=== PATIENT | male | born 1965 | race Caucasian/White ===

== ENCOUNTER 2025-01-25 12:11 | Emergency (ER) | payer OTHER, SELFPAY ==
--- NOTE | ~2025-01-25 | XR_ITS ---
CLINICAL HISTORY: dyspnea on exertion Two views of the chest. COMPARISON: None FINDINGS: Radiopaque debris overlying the posterior lower neck on the left. Low lung volumes. Normal heart size. Mild elevation of the left hemidiaphragm. No consolidation. No pleural effusion. No pneumothorax. Mild spondylosis. No acute fracture identified. IMPRESSION: 1. Low lung volumes. No consolidation. 2. Elevation of the left hemidiaphragm, unclear etiology. This document has been electronically signed by: Wiley Chung MD on 01/25/2025 17:25:55
[2025-01-25 12:29] VITALS: BP 132/88; PULSE 86; PULSE 96; RESP 18; TEMP 36.4; O2SAT 92; O2SAT 93; BMI 37.3
--- NOTE | 2025-01-25 14:46 | ECG_ITS ---
Test Reason : sob Blood Pressure : */* mmHG Vent. Rate : 94 BPM Atrial Rate : 94 BPM P-R Int : 160 ms QRS Dur : 92 ms QT Int : 338 ms P-R-T Axes : 44 15 52 degrees QTcB Int : 422 ms Normal sinus rhythm Normal ECG No previous ECGs available Referred By: Tyra Herrera Electronically Signed By: Ambrocio Austin
--- NOTE | 2025-01-25 15:55 | ED.GENADULT ---
HPI - General Adult General Chief complaint: General Medical Stated complaint: LEG/BACK/NECK PAIN X2 DAYS,-TRAUMA PER EMS Time Seen by Provider: 01/25/25 15:55 History of Present Illness ED Provider: Ernesto CERON narrative: The patient is a 59-year-old male who says that he has a history of type 2 diabetes and hypertension and fibromyalgia. He says that he recently moved to this area from [place] about 3 months ago. He does not have a doctor in his area and he has no medications. He believes that he has taken metformin and insulin for his diabetes in the past. He can not name any antihypertensive medications. 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 He says that at his job he has had to go up a lot of stairs. He says that he has found going up the stairs difficult. It causes pain in his knees in his ankles. He wonders if this is related to his fibromyalgia. Today he also felt pain that he says started in his head and went down the back of his neck and throughout his back and down to his legs. He says he has had episodes of pain like this in the past. He says that he used to live in [place], [place] for 10 years and he often went to the hospital there for similar symptoms. The patient says that he was in [place] for about 3 years until moving to [place] 3 months ago. He has no local doctors. He lives with his daughter. Related Data Previous Rx's ?Medication ?Instructions ?Recorded acetaminophen 500 mg capsule 1,000 mg (2 x 500 mg) PO Q8H PRN 01/25/25 fever or pain #14 caps ibuprofen 400 mg tablet 400 mg PO Q6H PRN pain #14 tabs 01/25/25 metformin 500 mg tablet 500 mg PO BID 90 days #180 tabs 01/25/25 Allergies Allergy/AdvReac Type Severity Reaction Status Date / Time No Known Allergies Allergy Verified 01/25/25 12:33 Review of Systems Review of Systems: Yes all other systems are reviewed and are negative Physical Exam ED Vital Signs: Vital Signs - 24 hr 01/25/25 12:29 01/25/25 18:13 01/25/25 19:55 Temperature 97.6 F 97.8 F 98 F Pulse Rate 86 103 H 98 Respiratory Rate 18 21 H 18 Blood Pressure 132/88 119/80 122/76 Pulse Oximetry 93 94 98 Oxygen Delivery Method Room Air Room Air Room Air BMI result Body Mass Index 37.3 Const Other: The patient is a somewhat overweight 59-year-old male who was awake and alert. He does not appear in obvious acute distress or seem obviously acutely ill. HENMT Other: Face is symmetrical, mucous membranes moist Eyes General: appearance normal, both eyes and all related structures Conjunctivae: conjunctivae normal Pupils: Equal, round and reactive pupils present EOM: EOMs intact bilaterally Neck Neck: Yes normal visual inspection, Yes full ROM, Yes no lymphadenopathy and Yes no JVD Resp Effort & Inspection: normal respiratory effort Auscultation: clear to auscultation bilaterally Cardio Jugular venous distension: no JVD Rate: regular rate Rhythm: regular rhythm Heart sounds: S1 normal heart sound present and S2 normal heart sound present GI Other: Abdomen is soft and nontender Skin Other: Skin is dry and unremarkable, no erythema Neuro Other: The patient is awake and alert with a normal mental status. Cranial nerves are grossly intact. He moves his extremities symmetrically. Cranial nerves: Yes Equal, round and reactive pupils present Extrem Other: No focal joint swelling or tenderness. No pitting edema. No asymmetry to the calves. Medications Administered Discontinued Medications Generic Name Dose Route Start Last Admin Trade Name Freq PRN Reason Stop Dose Admin Diphenhydramine HCl 25 mg 01/25/25 18:32 01/25/25 18:48 Diphenhydramine Hcl 50 Mg/Ml Vial IVPUSH 01/25/25 18:33 25 mg ONCE ONE Administration Sodium Chloride 1,000 mls @ 999 mls/hr 01/25/25 18:45 01/25/25 19:55 Ns IV 01/25/25 19:45 Infused .Q1H1M CAT Infusion Ketorolac Tromethamine 10 mg 01/25/25 18:32 01/25/25 18:48 Ketorolac Tromethamine 15 Mg/Ml Vial IVPUSH 01/25/25 18:33 10 mg ONCE ONE Administration Metoclopramide HCl 10 mg 01/25/25 18:32 01/25/25 18:48 Metoclopramide Hcl 10 Mg/2 Ml Vial IVPUSH 01/25/25 18:33 10 mg ONCE ONE Administration Medical Decision Making Medical Decision Making [facility] Narrative: The patient is a 59-year-old male who relocated to this area from [place] about 3 months ago. He has a history of type 2 diabetes and hypertension but has not been on any medications recently. The only medication that he can tell me he has been on is metformin. He also says he takes insulin but can not tell me what type of insulin he takes. The patient is here with pains in his legs and some dyspnea on exertion. He also complains of a headache that extends from his head to his back to his legs. Clinically the patient does not appear obviously acutely unwell and his workup in the emergency room is largely unremarkable. His vital signs are unremarkable. His physical exam does not reveal any remarkable findings. His CBC and chemistries are unremarkable. He has an undetectable troponin. He has a normal EKG. He has an undetectable BNP. He has a normal D-dimer. Overall my impression is that the patient is having pain which could be a migraine headache or might be some kind of fibromyalgia flare (he reports a history of fibromyalgia and he also reports a history of similar episodes of pain in the past). Ultimately I felt he was appropriate for discharge. He was treated for a possible migraine headache with ketorolac, metoclopramide, and diphenhydramine. I will write a prescription for metformin. He was given contact information for possible primary care practices. Lab Data 01/25/25 17:13 01/25/25 17:14 Labs: Lab Results 01/25/25 01/25/25 01/25/25 Range/Units 17:13 17:14 17:15 WBC 4.5 L (4.8-10.8) X10*3/uL RBC 5.22 (4.60-5.80) X10*6/uL Hgb 16.8 (14.0-18.0) g/dl Hct 45.0 (42.0-52.0) % MCV 86.2 (80.0-98.0) fL MCH 32.2 (27.0-33.0) pg MCHC 37.3 H (31.0-36.0) g/dl RDW 12.4 (11.0-16.0) % Plt Count 223 (160-400) X10*3/uL MPV 9.0 L (9.4-12.4) fL Immature Gran % (Auto) 0.2 (0.0-0.4) % Neut % (Auto) 39.1 L (45-73) % Lymph % (Auto) 52.0 H (20-40) % [place] % (Auto) 6.9 (2-11) % Eos % (Auto) 1.1 (0-4) % Baso % (Auto) 0.7 (0-2) % Lymph # (Auto) 2.3 (1.2-4.9) X10*3/uL [place] # (Auto) 0.3 (0.1-1.2) X10*3/uL Eos # (Auto) 0.1 (0.0-0.4) X10*3/uL Baso # (Auto) 0.0 (0.0-0.2) X10*3/uL Abs Immat Gran (auto) 0.01 (0.00-0.03) X10*3/uL Absolute Neuts (auto) 1.8 L (2.0-8.3) x10*3/uL Absolute Nucleated RBC 0.000 (0.0-0.012) X10*3/uL Nucleated RBC % (auto) 0.0 (0.0-0.2) /100WBC PT 12.8 H (10.9-12.4) SEC INR 1.1 (0.9-1.1) D-Dimer High Sensitivty 150 NG/ML Sodium 140 (135-145) mmol/L Potassium 4.0 (3.3-5.1) mmol/L Chloride 110 H (96-108) mmol/L Carbon Dioxide 24 (22-29) mmol/L Anion Gap 10 L (12-20) BUN 10 (9-16) mg/dL Creatinine 0.79 (0.5-1.4) mg/dL Estim Creat Clear Calc 111.7 Estimated GFR > 60 POC Glucose (60-115) mg/dL Random Glucose 178 H (60-115) mg/dL Calcium 9.1 (8.4-10.2) mg/dL Magnesium 1.8 (1.6-2.6) mg/dL Total Bilirubin 1.0 (0.0-1.0) mg/dL AST 45 H (5-37) U/L ALT 61 H (0-40) U/L Alkaline Phosphatase 108 (39-117) U/L Troponin I High Sens < 2.7 (<3.5-35.0) ng/L C-Reactive Protein 0.20 (< or = 0.50) mg/dL B-Natriuretic Peptide < 10 (<100) pg/mL Total Protein 7.2 (6.5-8.0) g/dL Albumin 4.0 (3.5-5.0) g/dL Influenza Type A (PCR) NEGATIVE (Negative) Influenza Type B (PCR) NEGATIVE (Negative) RSV RNA Qual (PCR) NEGATIVE (Negative) SARS-CoV-2 RNA (RT-PCR) NEGATIVE (Negative) 01/25/25 Range/Units 18:33 WBC (4.8-10.8) X10*3/uL RBC (4.60-5.80) X10*6/uL Hgb (14.0-18.0) g/dl Hct (42.0-52.0) % MCV (80.0-98.0) fL MCH (27.0-33.0) pg MCHC (31.0-36.0) g/dl RDW (11.0-16.0) % Plt Count (160-400) X10*3/uL MPV (9.4-12.4) fL Immature Gran % (Auto) (0.0-0.4) % Neut % (Auto) (45-73) % Lymph % (Auto) (20-40) % [place] % (Auto) (2-11) % Eos % (Auto) (0-4) % Baso % (Auto) (0-2) % Lymph # (Auto) (1.2-4.9) X10*3/uL [place] # (Auto) (0.1-1.2) X10*3/uL Eos # (Auto) (0.0-0.4) X10*3/uL Baso # (Auto) (0.0-0.2) X10*3/uL Abs Immat Gran (auto) (0.00-0.03) X10*3/uL Absolute Neuts (auto) (2.0-8.3) x10*3/uL Absolute Nucleated RBC (0.0-0.012) X10*3/uL Nucleated RBC % (auto) (0.0-0.2) /100WBC PT (10.9-12.4) SEC INR (0.9-1.1) D-Dimer High Sensitivty NG/ML Sodium (135-145) mmol/L Potassium (3.3-5.1) mmol/L Chloride (96-108) mmol/L Carbon Dioxide (22-29) mmol/L Anion Gap (12-20) BUN (9-16) mg/dL Creatinine (0.5-1.4) mg/dL Estim Creat Clear Calc Estimated GFR POC Glucose 163 H (60-115) mg/dL Random Glucose (60-115) mg/dL Calcium (8.4-10.2) mg/dL Magnesium (1.6-2.6) mg/dL Total Bilirubin (0.0-1.0) mg/dL AST (5-37) U/L ALT (0-40) U/L Alkaline Phosphatase (39-117) U/L Troponin I High Sens (<3.5-35.0) ng/L C-Reactive Protein (< or = 0.50) mg/dL B-Natriuretic Peptide (<100) pg/mL Total Protein (6.5-8.0) g/dL Albumin (3.5-5.0) g/dL Influenza Type A (PCR) (Negative) Influenza Type B (PCR) (Negative) RSV RNA Qual (PCR) (Negative) SARS-CoV-2 RNA (RT-PCR) (Negative) Independent Interpretation I performed an independent interpretation of an: EKG Interpretation: EKG at 1547 shows normal sinus rhythm at 84 beats per minute. It is a normal EKG. No previous EKGs for comparison. Discharge Plan Discharge Clinical Impression: Headache, Back pain, Bilateral leg pain, Type 2 diabetes mellitus Patient Disposition: Home, Self-Care Additional Instructions: Your testing in the emergency room today seems very reassuring from the point of view of any dangerous process. There is no sign of significant infection or blood clot problems. No sign of heart attack or heart failure. I have sent a prescription for metformin which you may begin taking again 2 times a day. I have also sent a prescription for ibuprofen that you may use as needed for pain. Please work on getting a new primary care doctor for assistance with other medications for diabetes and other long-term health issues. Return to the emergency room if significantly worse. Prescriptions: New metformin 500 mg tablet 500 mg PO BID 90 Days Qty: 180 0RF acetaminophen 500 mg capsule 1,000 mg PO Q8H PRN (Reason: fever or pain) Qty: 14 0RF ibuprofen 400 mg tablet 400 mg PO Q6H PRN (Reason: pain) Qty: 14 0RF Referrals: [facility] [Provider Group] [facility], [place] [Provider Group] [facility] Primary [facility], [place] [Provider Group] Interventions: ED Discharge Assessment Last Done: 01/25/25 19:55 Discharge Date/Time: 01/25/25 20:00 Print Language: Monegasque
[2025-01-25 17:19] LABS: MANUAL DIFF FLAG NO
[2025-01-25 17:21] LABS: Basophils Percent Auto 0.7 % (0-2); Eosinophils Absolute Auto 0.1 X10*3/uL (0.0-0.4); Eosinophils Percent Auto 1.1 % (0-4); Hemoglobin 16.8 g/dl (14.0-18.0); Imm Gran Abs Auto 0.01 X10*3/uL (0.00-0.03); Imm Gran Pct Auto 0.2 % (0.0-0.4); Lymphocytes Absolute Auto 2.3 X10*3/uL (1.2-4.9); Mean Corpuscular HGB Conc 37.3 g/dl (31.0-36.0); Mean Corpuscular Hemoglobin 32.2 pg (27.0-33.0); Mean Corpuscular Volume 86.2 fL (80.0-98.0); Monocytes Absolute Auto 0.3 X10*3/uL (0.1-1.2); Monocytes Percent Auto 6.9 % (2-11); Neutrophils Absolute Auto 1.8 x10*3/uL (2.0-8.3); Neutrophils Percent Auto 39.1 % (45-73); Platelet Count 223 X10*3/uL (160-400); Red Blood Count 5.22 X10*6/uL (4.60-5.80); Red Cell Distribution Width 12.4 % (11.0-16.0); White Blood Count 4.5 X10*3/uL (4.8-10.8)
[2025-01-25 17:27] LABS: INTERNATIONAL NORM RATIO 1.1 (0.9-1.1); Prothrombin Time 12.8 SEC (10.9-12.4)
[2025-01-25 17:34] LABS: Alanine Aminotransferase 61 U/L (0-40); Alkaline Phosphatase 108 U/L (39-117); Anion Gap 10 (12-20); Aspartate Amino Transferase 45 U/L (5-37); Blood Urea Nitrogen 10 mg/dL (9-16); Calcium 9.1 mg/dL (8.4-10.2); Carbon Dioxide 24 mmol/L (22-29); Chloride 110 mmol/L (96-108); Creatinine Clr Calc Pharmacy 111.7; Estimated Glomerular Filt Rate > 60; Glucose Random 178 mg/dL (60-115); Magnesium 1.8 mg/dL (1.6-2.6); Sodium 140 mmol/L (135-145); Total Protein 7.2 g/dL (6.5-8.0)
[2025-01-25 17:40] LABS: B Type Natriuretic Peptide < 10 pg/mL (<100)
[2025-01-25 17:42] LABS: Troponin-I High Sensitivity < 2.7 ng/L (<3.5-35.0)
[2025-01-25 18:01] LABS: Influenza A PCR NEGATIVE (Negative); Influenza B PCR NEGATIVE (Negative); Resp Syncy Virus RNA Qual PCR NEGATIVE (Negative); SARS COV2 PCR INHOUSE NEGATIVE (Negative)
[2025-01-25 18:13] VITALS: BP 119/80; PULSE 103; RESP 21; TEMP 36.6; O2SAT 94
--- NOTE | 2025-01-25 18:14 | PC.NURSE ---
Per EMS, pt desat to mid 80s en route. Placed on 4L NC, O2 maintained 92%-94%. Upon arrival, pt trialed off O2 d/t not wearing O2 at home. Pt O2 sat mid 90s on RA- no increased wob/sob noted.
[2025-01-25 18:28] LABS: D Dimer High Sensitivity 150 NG/ML
[2025-01-25 18:37] LABS: Glucose, Whole Blood 163 mg/dL (60-115)
[2025-01-25] MEDS: 0.9 % Sodium Chloride 1,000 ML 999 ML IV (18:47)
[2025-01-25] MEDS: diphenhydrAMINE HCL 50 MG/ML VIAL 25 MG IVPUSH (18:48)
[2025-01-25] MEDS: Metoclopramide HCl 10 MG/2 ML VIAL IVPUSH (18:48)
[2025-01-25] MEDS: Ketorolac Tromethamine 15 MG/ML VIAL 10 MG IVPUSH (18:48)
[2025-01-25 19:55] VITALS: BP 122/76; PULSE 98; RESP 18; TEMP 36.6; O2SAT 98
== END 2025-01-25 20:00 | disposition home or self-care (01) ==
PROVIDERS: Physician Assistant Medical; Emergency Provider Emergency Medicine
DX: R51.9 Headache, unspecified (principal); M79.605 Pain in left leg; M79.604 Pain in right leg; M79.7 Fibromyalgia; E11.9 Type 2 diabetes mellitus without complications; M54.2 Cervicalgia; R06.02 Shortness of breath; R11.0 Nausea; M54.50 Low back pain, unspecified; Z79.899 Other long term (current) drug therapy; Z79.4 Long term (current) use of insulin; Z03.818 Encounter for observation for suspected exposure to other biological agents ruled out
CPT/HCPCS: 0241U; 36415; 71046; 80053; 82947; 83735; 83880; 84484; 85025; 85379; 85610; 86140; 93005; 96361; 96374; 96375; 99284; 99285; J1200; J1885; J2765

== ENCOUNTER → 2025-01-25 14:46 | Outpatient (BNV) | payer OTHER, SELFPAY | PROVIDERS: Emergency Provider Emergency Medicine; Visit Provider Internal Medicine Cardiovascular Disease | DX: R06.02 Shortness of breath (principal) | CPT/HCPCS: 93010 ==

== ENCOUNTER → 2025-01-25 16:41 | Outpatient (BNV) | payer OTHER, SELFPAY | PROVIDERS: Emergency Provider Emergency Medicine; Visit Provider Radiology Diagnostic Radiology | DX: J98.4 Other disorders of lung (principal); J98.6 Disorders of diaphragm | CPT/HCPCS: 71046 ==